=== PATIENT | male | born 1985 | race African-American/Black ===

== ENCOUNTER 2019-05-10 23:33 | Emergency (ER) | payer BC ==
[~2019-05-10] VITALS: Ht 177.8 cm; Wt 108.9 kg
[2019-05-11] MEDS ORDERED: TESSALON PERLE100 MG PO (00:52)
[2019-05-11 01:05] VITALS: BP 150/101
== END 2019-05-11 01:06 | disposition home or self-care (01) ==
LOC: ER 23:33
DX: B34.9 Viral infection, unspecified (principal)